=== PATIENT | female | born 1965 | race Caucasian/White ===

== ENCOUNTER 2017-09-07 20:23 | Emergency (ER) | payer BC ==
[~2017-09-07] VITALS: Ht 160 cm; Wt 68.0 kg
== END 2017-09-07 21:39 | disposition home or self-care (01) ==
LOC: ED 20:23
DX: S05.32XA Ocular laceration without prolapse or loss of intraocular tissue, left eye, initial encounter (principal); Z88.2 Allergy status to sulfonamides; W22.8XXA Striking against or struck by other objects, initial encounter; Y93.89 Activity, other specified; Y92.89 Other specified places as the place of occurrence of the external cause; Y99.9 Unspecified external cause status

== ENCOUNTER → 2020-11-09 | Outpatient (CLI) | payer BC ==
[~2020-11-09] MED LIST: ASPIR LOW81 MG PO; Motrin,Rufen800 MG PO; PROVERA5 MG PO; VITAMIN B121000 MC1 PO; VITAMIN D33000 UNIT PO
== END | disposition home or self-care (01) ==
LOC: COVID19 13:38
PROVIDERS: ATTEND Internal Medicine
DX: U07.1 COVID-19 (principal); R43.0 Anosmia

== ENCOUNTER 2024-04-09 13:58 | Emergency (ER) | payer BC ==
[~2024-04-09] VITALS: Ht 152.4 cm; Wt 74.8 kg
[2024-04-09] MEDS ORDERED: SODIUM CHLORIDE 0.9% 1,000 ML IV ONE (14:20)
[2024-04-09] MEDS ORDERED: Ondansetron Hydrochloride 4 MG/2 ML VIAL IV ONE (14:20)
[2024-04-09] MEDS ORDERED: Ketorolac Tromethamine 15 MG/ML VIAL IM ONE (14:20)
[2024-04-09 14:49] LABS: BASO % 0.4 % (0.0-1.0); EOS # 0.1 10*3/uL (0.0-0.4); EOS % 0.7 % (1.0-4.0); HEMATOCRIT 37.9 % (37.0-47.0); LYMPH # 2.5 10*3/uL (1.3-4.4); MEAN CELL VOLUME 94.3 fl (81.0-99.0); MEAN CORPUSCULAR HGB 30.1 pg (27.0-31.0); MEAN CORPUSCULAR HGB CONC 31.9 g/dl (33.0-37.0); MEAN PLATELET VOLUME 8.6 fl (9.6-12.3); MONO # 0.7 10*3/uL (0.1-1.0); MONO % 10.6 % (3.0-9.0); NEUT # 3.6 10*3/uL (2.3-7.9); PLATELET COUNT AUTOMATED 327 10*3/uL (130-400); RED BLOOD COUNT 4.02 10*6/uL (4.10-5.10); RED CELL DISTRI WIDTH 12.9 % (0-14.5)
[2024-04-09 15:11] LABS: ALKALINE PHOSPHATASE 53 U/L (46-116); BUN 14 mg/dl (9-23); CHLORIDE 104 mmol/L (98-107); LIPASE 37 U/L (12-53); POTASSIUM 4.1 mmol/L (3.4-5.1); SGPT/ALT 23 U/L (5-49); TOTAL PROTEIN 7.3 gm/dL (6.0-8.0)
[2024-04-09 15:43] LABS: BILIRUBIN Negative (Negative); BLOOD Negative (Negative); CLARITY Clear (Clear); COLOR Yellow (Yellow); GLUCOSE Negative (Negative); KETONE Negative (Negative); LEUKO ESTERASE Negative (Negative); NITRITE Negative (Negative); PH 5.5 (4.5-8.0); SPECIFIC GRAVITY 1.015 (1.001-1.030); UROBILINOGEN 0.2 E.U./dl (0.0-1.0)
[2024-04-09 16:01] LABS: BACTERIA TRACE; EPITHELIAL CELLS 0-2; RBC 0-2 rbc/hpf (0-2); WBC 0-2 wbc/hpf (0-5)
[2024-04-09] MEDS ORDERED: TINIDAZOLE500 MG PO (17:06)
[2024-04-09] MEDS ORDERED: DICYCLOMINE HYD10 MG PO (17:09)
== END 2024-04-09 17:40 | disposition home or self-care (01) ==
LOC: ED 13:58
PROVIDERS: Physician Assistant Medical
DX: R19.7 Diarrhea, unspecified (principal); R11.0 Nausea; F32.A Depression, unspecified; Z88.1 Allergy status to other antibiotic agents; Z98.890 Other specified postprocedural states; Z90.49 Acquired absence of other specified parts of digestive tract